=== PATIENT | female | born 1995 | race Caucasian/White ===

== ENCOUNTER 2016-12-30 18:04 | Emergency (ER) | payer OTHER ==
[~2016-12-30] VITALS: Ht 160 cm; Wt 77.3 kg
[2016-12-30 18:11] VITALS: BP 133/87; PULSE 86; TEMP 36.8; O2SAT 99; Ht 160 cm; Wt 77.3 kg
[2016-12-30] MEDS ORDERED: TRAM-10 PO (18:42)
[2016-12-30] MEDS ORDERED: CYCL10TA6 PO (18:42)
[2016-12-30] MEDS ORDERED: FLEXERIL HOME PACK 10 MG VIAL PO ONE (18:45)
[2016-12-30] MEDS ORDERED: TRAMADOL HCL 50 MG HOME PACK PO ONE (18:45)
--- NOTE | 2016-12-31 01:18 | EMERGENCY ROOM VISIT NOTE ---
ED Visit Note First contact with patient: 18:11 Chief Complaint: [place] [facility] [place] [facility]. History of Present Illness: Ms. Crow is a 21-year-old white female who ambulates into the ED accompanied by female friend complaining of thoracic and lumbar back pain. Historically patient denies any previous significant injuries or surgeries to the thoracic or lumbar spine. Patient reports she was at [employer] practice yesterday and was lifting people into the air, twisting with her back. She reports after the practice she had some mild achiness in the lumbar and thoracic back. Then when she woke up this morning the pain was much more severe. Currently she complains of a sharp and cramping pain throughout the thoracic and lumbar paraspinous muscles with prominence on the right. She rates her discomfort 6.5/10. She does feel the pain originates in the lumbar spine and move superiorly into the thoracic spine. Her pain worsens with all movement of the spine and palpation of the paraspinous muscles. She has not identified any alleviating factors related to the pain. She reports she has taken over-the- counter medications without relief of her discomfort. She denies any associated symptoms including fevers, chills, sweats, skin eruptions, skin color changes, headache, dizziness, lightheadedness, chest pain , shortness of breath, abdominal pain, nausea, vomiting, diarrhea, constipation , rectal bleeding, black/tarry stools, urinary symptoms, hematuria, vaginal bleeding, vaginal discharge, bowel and bladder dysfunction, genital paresthesias , extremity weakness/numbness/tingling. Review of Systems: As noted above in history of present illness. All body systems were reviewed and found to be negative as noted above. Past Medical History: Dad is post wisdom teeth extraction. Current Medications: Patient denies. Allergies to Medications: Patient denies. 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 Physical Examination: Vital Signs: Date Time Temp Pulse Resp B/P (MAP) Pulse Ox O2 Delivery O2 Flow Rate FiO2 12/30/16 18:11 36.8 86 17 133/87 99 Room Air GENERAL: 21-year-old female in mild to moderate distress due to pain, nontoxic- appearing, afebrile and hemodynamically stable. NEUROLOGICAL: Awake, alert and oriented to person, place and time. Answering questions appropriately and following commands. Normal gait. Good hand eye coordination. SKIN: Warm, dry and pink. No soft tissue eruptions or trauma noted. HEENT: Atraumatic and normocephalic. BACK: No tenderness over the bony cervical, thoracic and lumbar spine. Moderate tenderness throughout the thoracic and lumbar paraspinous muscles with obvious spasm. No CVA tenderness. Decreased range of motion of all movements of the thoracic and lumbar spine due to pain. Negative straight leg raise test. THORAX: Lungs sounds are clear to auscultation and equal bilaterally with symmetrical chest wall. ABDOMEN: Flat, soft and nontender. Positive bowel sounds in all quadrants. EXTREMITIES: Moves all extremities well on command and with purpose. Upper: No gross bony deformities. No tenderness in the shoulders, elbows, forearms or wrist. 5/5 muscle strength in all movements of the shoulder, elbow, forearm and wrist. 2+ deep tendon reflexes intact and equal bilaterally. Throughout the arm the skin was warm and pink and capillary refill is brisk. She is able to distinctly slight sensations in all dermatomes. Lower: No gross bony deformity. No tenderness in the hips, knees, ankles or feet. 5/5 muscle strength in all movements of the hips, knees, ankles and toes. 2+ deep tendon reflexes intact and equal bilaterally. Throughout the legs to skin was warm and pink and capillary refill is brisk. She is able to distinguish light sensations through all dermatomes. ED Course: Patient is assessed as noted above. Patient's medication list was reviewed. Patient was offered x-rays of her spine and refused. Patient was educated about today's findings and instructed on her treatment plan ; she verbalized understanding and agreement with this plan. Clinical Impression: Acute thoracic and lumbar back pain. Disposition: Patient discharged home in stable condition; prior to departure she was reassessed and subjectively reported she was feeling the same. Plan: Comfort measures were discussed with the patient including rest, ice, sliding pain medication scale of ibuprofen, acetaminophen and Ultram and a prescription for muscle relaxants of Flexeril. Proper lifting and moving techniques were discussed with the patient. Patient was encouraged to follow-up at [facility] for recheck in 3-5 days. Patient was encouraged return ED for worsening pain, fevers, abdominal pain, nausea/vomiting, extremity weakness/numbness/tingling, genital paresthesias, bowel and bladder dysfunction or any new/concerning symptoms.
== END 2016-12-30 18:53 | disposition home or self-care (01) ==
LOC: C.EDB 18:08 → C.EDD 18:53
DX: M54.5 Low back pain (principal)